=== PATIENT | female | born 1935 | race Two or more races ===

== ENCOUNTER 2021-04-05 20:32 | Inpatient (IN) | payer OTHER ==
[~2021-04-05] VITALS: Ht 170.2 cm; Wt 55.1 kg
[~2021-04-05 20:32] MED LIST: AML5T PO; ASPI325T4 PO; DOCU-94 PO; FERR45TA7 PO; HYDR25TA5 PO; LISI20TA28 PO; MET25T PO; SPIR25TA PO
[2021-04-05 22:03] LABS: Basophils # (auto) 0 10 ^3/uL (0-0.2); Basophils % (auto) 0.2 % (0.0-2.0); Eosinophils # (auto) 0 10 ^3/uL (0-0.8); Eosinophils % (auto) 0.1 % (0.0-7.0); Lymphocytes # (auto) 0.3 10 ^3/uL (0.4-5.4); Lymphocytes % (auto) 3.6 % (10.0-50.0); Mean Corpuscular Hemoglobin 32.9 pg (28.0-32.0); Mean Corpuscular Hgb Conc. 34.6 g/dL (32.0-36.0); Mean Corpuscular Volume 95.1 fL (80.0-100.0); Monocytes # (auto) 0.7 10 ^3/uL (0-1.3); Monocytes % (auto) 8.9 % (0.0-12.0); Neutrophils # (auto) 6.6 10 ^3/uL (1.6-8.6); Neutrophils % (auto) 87.2 % (37.0-80.0); Nucleated Red Blood Cells % 0.1 %; Red Blood Cells 2.74 10^6/uL (4.0-5.20); Red Cell Distribution Width 15.1 % (11.8-14.3); White Blood Cell 7.6 10^3/uL (4.4-10.8)
[2021-04-05 22:17] LABS: INR 1.03 (0.9-1.15); Partial Thromboplastin Time 28.8 sec (23.6-33.0)
[2021-04-05 22:21] LABS: Albumin 2.3 g/dL (3.4-5.0); Calcium 7.9 mg/dL (8.5-10.1); Magnesium 2.8 mg/dL (1.6-2.6); Potassium 4.8 mmol/L (3.5-5.1)
[2021-04-05 22:28] LABS: BUN/Creatinine Ratio 37.3; Bilirubin, Total 0.4 mg/dL (0.2-1.0); Total Protein 7.1 g/dL (6.4-8.2)
[2021-04-05] MEDS ORDERED: ENOXAPARIN SOD 100 MG/1 ML SYRINGE SC ONE (22:45)
[2021-04-05] MEDS ORDERED: ASPirin 325 MG TAB PO ONE (22:45)
[2021-04-05] MEDS ORDERED: ADENOSINE 6 MG/2 ML INJ IV ONE (22:59)
[2021-04-05] MEDS ORDERED: dilTIAZem 25 MG/5 ML VIAL IV ONE ×2 (23:00→23:01)
[2021-04-05] MEDS ORDERED: PROPYLTHIOURACIL 50 MG TAB PO ONE (23:15)
[2021-04-05] MEDS ORDERED: PROPRANOLOL HCL 20 MG TAB PO ONE (23:15)
[2021-04-05] MEDS ORDERED: MORPHINE SULFATE INJECTION 2 MG/ML SYRG IV PRN (23:30)
[2021-04-05] MEDS ORDERED: NITROGLYCERIN 0.4 MG SL TAB SL PRN (23:30)
[2021-04-05] MEDS ORDERED: methIMAzole 5 MG TAB PO ONE (23:30)
[2021-04-05] MEDS ORDERED: methIMAzole 5 MG TAB ONE (23:42)
[2021-04-05] MEDS ORDERED: ALBUMIN 5% 250 ML IV ONE (23:45)
[2021-04-06] MEDS ORDERED: TEMAZEPAM 15 MG CAP PO PRN
[2021-04-06] MEDS ORDERED: ATORVASTATIN 20 MG TAB PO ONE
[2021-04-06] MEDS ORDERED: ONDANSETRON HCL 4 MG/2 ML VIAL IV PRN
[2021-04-06] MEDS ORDERED: ACETAMINOPHEN 325 MG TAB PO PRN
[2021-04-06] MEDS ORDERED: DIGOXIN (250MCG/ML) 2 ML AMPULE IV ONE (00:15)
[2021-04-06] MEDS ORDERED: ENOXAPARIN SOD 40 MG/0.4 ML SYRINGE SC ONE (05:15)
[2021-04-06 06:44] LABS: Basophils # (auto) 0 10 ^3/uL (0-0.2); Basophils % (auto) 0.3 % (0.0-2.0); Eosinophils # (auto) 0 10 ^3/uL (0-0.8); Eosinophils % (auto) 0.2 % (0.0-7.0); Hematocrit 25.2 % (36.0-46.0); Hemoglobin 8.5 g/dL (12.2-16.2); Lymphocytes # (auto) 0.4 10 ^3/uL (0.4-5.4); Mean Corpuscular Hemoglobin 32.3 pg (28.0-32.0); Mean Corpuscular Hgb Conc. 33.8 g/dL (32.0-36.0); Mean Corpuscular Volume 95.8 fL (80.0-100.0); Monocytes # (auto) 0.9 10 ^3/uL (0-1.3); Neutrophils # (auto) 5.3 10 ^3/uL (1.6-8.6); Neutrophils % (auto) 80.5 % (37.0-80.0); Red Blood Cells 2.63 10^6/uL (4.0-5.20); Red Cell Distribution Width 15.2 % (11.8-14.3); White Blood Cell 6.6 10^3/uL (4.4-10.8)
[2021-04-06 07:32] LABS: Albumin 2.1 g/dL (3.4-5.0); BUN/Creatinine Ratio 36.4; Calcium 7.9 mg/dL (8.5-10.1)
[2021-04-06 07:34] LABS: Bilirubin, Total 0.4 mg/dL (0.2-1.0); Total Protein 6.2 g/dL (6.4-8.2)
[2021-04-06 09:00] VITALS: BP 120/66
[2021-04-06] MEDS: ASPirin 81 mg TAB PO SCH (09:49)
[2021-04-06] MEDS ORDERED: ENOXAPARIN SOD 30 MG/0.3 ML SYRINGE SC SCH (10:00)
[2021-04-06] MEDS ORDERED: PANTOPRAZOLE 40 MG TAB PO SCH (10:00)
[2021-04-06] MEDS ORDERED: SODIUM CHLORIDE 0.9% 500 ML IV ONE (11:15)
[2021-04-06 12:30] VITALS: BP 130/66
[2021-04-06] MEDS ORDERED: IOHEXOL 350 MG/ML 100ML IJ ONE ×2 (13:18→15:21)
[2021-04-06 16:30] VITALS: BP 126/64
[2021-04-06] MEDS ORDERED: ADENOSINE 6 MG/2 ML INJ IV ONE ×4 (18:14→20:00)
[2021-04-06] MEDS ORDERED: METOPROLOL TARTRATE 25 MG TAB PO ONE (18:15)
[2021-04-06] MEDS: AMIODARONE HCL 150 MG in D5W 5% 100 ML IV ONE (20:30)
[2021-04-06] MEDS: AMIODARONE 450mg/250ml AE 250 ML IV SCH (20:35)
[2021-04-06 22:00] VITALS: BP 82/55
[2021-04-06] MEDS ORDERED: ATORVASTATIN 20 MG TAB PO SCH (22:00)
[2021-04-07] VITALS (45 sets, daily range): BP systolic 85–130; BP diastolic 50–82
[2021-04-07] MEDS: AMIODARONE 450mg/250ml AE 250 ML IV SCH ×3 (02:19→18:03)
[2021-04-07] MEDS: AMIODARONE HCL 150 MG in D5W 5% 100 ML IV ONE (02:20)
[2021-04-07] MEDS: ATORVASTATIN 20 MG TAB PO SCH ×2 (02:21→21:20)
[2021-04-07] MEDS: METOPROLOL TARTRATE 25 MG TAB PO SCH ×3 (03:58→17:17)
[2021-04-07 08:39] LABS: Basophils # (auto) 0 10 ^3/uL (0-0.2); Basophils % (auto) 0.2 % (0.0-2.0); Eosinophils # (auto) 0 10 ^3/uL (0-0.8); Eosinophils % (auto) 0.1 % (0.0-7.0); Hematocrit 28.4 % (36.0-46.0); Hemoglobin 9.5 g/dL (12.2-16.2); Lymphocytes # (auto) 0.3 10 ^3/uL (0.4-5.4); Lymphocytes % (auto) 4.1 % (10.0-50.0); Mean Corpuscular Hemoglobin 32.2 pg (28.0-32.0); Mean Corpuscular Hgb Conc. 33.4 g/dL (32.0-36.0); Mean Corpuscular Volume 96.3 fL (80.0-100.0); Monocytes # (auto) 0.8 10 ^3/uL (0-1.3); Monocytes % (auto) 9.9 % (0.0-12.0); Neutrophils # (auto) 7.1 10 ^3/uL (1.6-8.6); Neutrophils % (auto) 85.7 % (37.0-80.0); Nucleated Red Blood Cells % 0.1 %; Red Blood Cells 2.95 10^6/uL (4.0-5.20); Red Cell Distribution Width 14.8 % (11.8-14.3); White Blood Cell 8.2 10^3/uL (4.4-10.8)
[2021-04-07 08:51] LABS: BUN/Creatinine Ratio 40.9; Calcium 7.8 mg/dL (8.5-10.1); Potassium 4.9 mmol/L (3.5-5.1)
[2021-04-07 09:14] LABS: INR 1.01 (0.9-1.15); Partial Thromboplastin Time 27.9 sec (23.6-33.0)
[2021-04-07] MEDS: ASPirin 81 mg TAB PO SCH (10:15)
[2021-04-07] MEDS ORDERED: ADENOSINE 6 MG/2 ML INJ IV PRN (13:30)
[2021-04-08 05:12] VITALS: BP 101/72
[2021-04-08] MEDS: METOPROLOL TARTRATE 25 MG TAB PO SCH (06:10)
[2021-04-08 08:30] VITALS: BP 102/52
[2021-04-08] MEDS: ASPirin 81 mg TAB PO SCH (10:00)
[2021-04-08] MEDS: ENOXAPARIN SOD 40 MG/0.4 ML SYRINGE SC SCH (10:00)
[2021-04-08] MEDS ORDERED: ERGOCALCIFEROL 50,000 UNIT(1.25MG) CAP PO SCH (11:45)
[2021-04-08 12:30] VITALS: BP 105/60
[2021-04-08 14:35] VITALS: BP 128/62
[2021-04-08] MEDS: AMIODARONE 450mg/250ml AE 250 ML IV SCH (15:45)
[2021-04-08 17:00] VITALS: BP 128/62
[2021-04-08 21:30] VITALS: BP 102/56
[2021-04-08] MEDS: AMIODARONE HCL 200 MG TAB PO SCH (22:15)
[2021-04-08] MEDS: ATORVASTATIN 20 MG TAB PO SCH (22:16)
[2021-04-09 05:01] VITALS: BP 101/59
[2021-04-09 05:48] LABS: Calcium 7.8 mg/dL (8.5-10.1); Potassium 5.2 mmol/L (3.5-5.1)
[2021-04-09 05:51] LABS: BUN/Creatinine Ratio 27.5
[2021-04-09 07:56] VITALS: BP 129/64
[2021-04-09] MEDS: ENOXAPARIN SOD 40 MG/0.4 ML SYRINGE SC SCH (10:00)
[2021-04-09] MEDS: AMIODARONE HCL 200 MG TAB PO SCH ×2 (10:29→21:44)
[2021-04-09] MEDS: ASPirin 81 mg TAB PO SCH (10:29)
[2021-04-09 12:00] VITALS: BP 125/67
[2021-04-09 14:35] VITALS: BP 123/68
[2021-04-09] MEDS ORDERED: SODIUM CHLORIDE 0.9% 1,000 ML IV ONE ×2 (16:00)
[2021-04-09 16:12] VITALS: BP 123/60
[2021-04-09] MEDS ORDERED: SODIUM CHLORIDE 0.9% 1,000 ML IV SCH (19:45)
[2021-04-09 20:30] LABS: BUN/Creatinine Ratio 26.3; Calcium 7.5 mg/dL (8.5-10.1); Potassium 5.2 mmol/L (3.5-5.1)
[2021-04-09 20:40] LABS: Urine Bacteria NONE SEEN /hpf (None Seen); Urine Blood 1+ /uL (Negative); Urine Mucus FEW (None Seen); Urine Specific Gravity 1.026 (1.001-1.035); Urine WBC 251 /hpf (0 - 5); Urine WBC Clumps PRESENT /hpf (None Seen)
[2021-04-09] MEDS: ATORVASTATIN 20 MG TAB PO SCH (21:44)
[2021-04-09 22:00] VITALS: BP 137/76
[2021-04-09] MEDS ORDERED: BISACODYL 10 MG RECT SUPP PR PRN (22:30)
[2021-04-10 05:00] VITALS: BP 118/62
[2021-04-10 07:20] LABS: BUN/Creatinine Ratio 27.1; Calcium 7.5 mg/dL (8.5-10.1); Potassium 5.4 mmol/L (3.5-5.1)
[2021-04-10 08:00] VITALS: BP 152/78
[2021-04-10] MEDS: ENOXAPARIN SOD 40 MG/0.4 ML SYRINGE SC SCH (08:28)
[2021-04-10 08:30] VITALS: BP 135/73
[2021-04-10] MEDS: POLYETHYLENE GLYCOL 17 GM PWDR PO SCH ×2 (10:00→21:03)
[2021-04-10] MEDS: AMIODARONE HCL 200 MG TAB PO SCH ×2 (10:00→21:01)
[2021-04-10] MEDS ORDERED: APIXABAN 2.5 MG TAB PO SCH (10:00)
[2021-04-10] MEDS: APIXABAN 2.5 MG TAB PO SCH ×2 (10:00→21:01)
[2021-04-10] MEDS: ASPirin 81 mg TAB PO SCH (10:00)
[2021-04-10] MEDS ORDERED: SODIUM CHLORIDE 0.9% 1,000 ML IV ONE (12:15)
[2021-04-10] MEDS: SODIUM CHLORIDE 0.9% 1,000 ML IV SCH (20:45)
[2021-04-10] MEDS: ATORVASTATIN 20 MG TAB PO SCH (21:02)
[2021-04-10 22:00] VITALS: BP 139/79
[2021-04-10 22:18] VITALS: BP 134/79
[2021-04-11 05:00] VITALS: BP 116/65
[2021-04-11 06:05] LABS: BUN/Creatinine Ratio 28.5; Calcium 7.5 mg/dL (8.5-10.1); Potassium 4.9 mmol/L (3.5-5.1)
[2021-04-11 09:00] VITALS: BP 134/73
[2021-04-11] MEDS: POLYETHYLENE GLYCOL 17 GM PWDR PO SCH ×2 (10:00→20:56)
[2021-04-11] MEDS: AMIODARONE HCL 200 MG TAB PO SCH ×2 (10:19→20:56)
[2021-04-11] MEDS: APIXABAN 2.5 MG TAB PO SCH ×2 (10:20→20:56)
[2021-04-11] MEDS: ASPirin 81 mg TAB PO SCH (10:20)
[2021-04-11 12:45] VITALS: BP 156/68
[2021-04-11] MEDS: SODIUM CHLORIDE 0.9% 1,000 ML IV SCH (13:25)
[2021-04-11 16:29] VITALS: BP 144/75
[2021-04-11] MEDS: ATORVASTATIN 20 MG TAB PO SCH (20:56)
[2021-04-11 21:45] VITALS: BP 127/67
[2021-04-11 22:18] VITALS: BP 127/67
[2021-04-12 05:25] VITALS: BP 128/87
[2021-04-12 05:36] LABS: BUN/Creatinine Ratio 30.8; Calcium 7.8 mg/dL (8.5-10.1); Potassium 5.2 mmol/L (3.5-5.1)
[2021-04-12] MEDS: SODIUM CHLORIDE 0.9% 1,000 ML IV SCH (06:05)
[2021-04-12 09:00] VITALS: BP 131/68
[2021-04-12] MEDS: AMIODARONE HCL 200 MG TAB PO SCH ×2 (09:01→23:21)
[2021-04-12] MEDS: ASPirin 81 mg TAB PO SCH (09:01)
[2021-04-12] MEDS: APIXABAN 2.5 MG TAB PO SCH ×2 (09:02→22:23)
[2021-04-12] MEDS: POLYETHYLENE GLYCOL 17 GM PWDR PO SCH ×2 (09:02→22:23)
[2021-04-12] MEDS ORDERED: InsuLIN REG 1unit/0.01ml Soln (100units/ml) IV ONE (09:15)
[2021-04-12] MEDS ORDERED: CALCIUM GLUC 1,000mg/50ml-NS 50 ML IV ONE (09:15)
[2021-04-12] MEDS ORDERED: DEXTROSE (50%) 50ML SYRG IV ONE (09:15)
[2021-04-12] MEDS ORDERED: SODIUM BICARBONATE 8.4 % INJ 50ML VIAL IV ONE (09:15)
[2021-04-12] MEDS: SODIUM ZIRCONIUM CYCL 10 GM PAK PO SCH ×2 (10:10→22:23)
[2021-04-12 13:00] VITALS: BP 127/71
[2021-04-12] MEDS ORDERED: SODIUM ZIRCONIUM CYCL 10 GM PAK PO ONE (14:00)
[2021-04-12 15:09] LABS: Anion Gap 6 (5-15); Carbon Dioxide 27 mmol/L (21-32); Chloride 105 mmol/L (98-107); Potassium 4.6 mmol/L (3.5-5.1); Sodium 138 mmol/L (136-145)
[2021-04-12 15:10] LABS: BUN/Creatinine Ratio 30.2; Blood Urea Nitrogen 62 mg/dL (7-18); Calcium 8.4 mg/dL (8.5-10.1); GFR African American 30 mL/min; GFR Non-African American 24 mL/min; Glucose 53 mg/dL (74-106)
[2021-04-12 17:00] VITALS: BP 148/66
[2021-04-12 21:43] VITALS: BP 146/65
[2021-04-12 22:00] VITALS: BP 146/65
[2021-04-12] MEDS: ATORVASTATIN 20 MG TAB PO SCH (22:23)
[2021-04-13 04:39] VITALS: BP 126/73
[2021-04-13 07:12] LABS: BUN/Creatinine Ratio 33.5; Calcium 8.2 mg/dL (8.5-10.1); Potassium 4.9 mmol/L (3.5-5.1)
[2021-04-13 08:51] VITALS: BP 136/73
[2021-04-13] MEDS: ASPirin 81 mg TAB PO SCH (09:05)
[2021-04-13] MEDS: APIXABAN 2.5 MG TAB PO SCH (09:06)
[2021-04-13] MEDS: AMIODARONE HCL 200 MG TAB PO SCH (09:06)
[2021-04-13] MEDS: POLYETHYLENE GLYCOL 17 GM PWDR PO SCH (09:06)
[2021-04-13 12:30] VITALS: BP 142/73
[2021-04-13 13:10] VITALS: BP 142/73
== END 2021-04-13 16:00 | DRG 280 ==
LOC: EDBD 20:32 → ER 20:32 → TELE 23:27 → TELE-WESTW 04-06 02:53 → ICU WEST 04-07 02:04 → TELE-CENTR 04-07 15:21
PROVIDERS: ADMIT Nurse Practitioner; ATTEND Internal Medicine
PROC: 05HD33Z Insertion of Infusion Device into Right Cephalic Vein, Percutaneous Approach (ICD-10-PCS; principal; 2021-04-12)
PROC: B54MZZA Ultrasonography of Right Upper Extremity Veins, Guidance (ICD-10-PCS; 2021-04-12)
DX: I21.4 Non-ST elevation (NSTEMI) myocardial infarction (principal); N17.0 Acute kidney failure with tubular necrosis; I47.1 Supraventricular tachycardia; I13.0 Hypertensive heart and chronic kidney disease with heart failure and stage 1 through stage 4 chronic kidney disease, or unspecified chronic kidney disease; E03.9 Hypothyroidism, unspecified; I27.20 Pulmonary hypertension, unspecified; I44.4 Left anterior fascicular block; I48.91 Unspecified atrial fibrillation; N18.31 Chronic kidney disease, stage 3a; T50.8X5A Adverse effect of diagnostic agents, initial encounter; D63.1 Anemia in chronic kidney disease; E55.9 Vitamin D deficiency, unspecified; E88.09 Other disorders of plasma-protein metabolism, not elsewhere classified; Z20.822 Contact with and (suspected) exposure to COVID-19; I73.9 Peripheral vascular disease, unspecified; I07.1 Rheumatic tricuspid insufficiency; I50.9 Heart failure, unspecified; I25.10 Atherosclerotic heart disease of native coronary artery without angina pectoris; J45.909 Unspecified asthma, uncomplicated; Z79.82 Long term (current) use of aspirin; Y92.89 Other specified places as the place of occurrence of the external cause; Z79.899 Other long term (current) drug therapy; Z82.49 Family history of ischemic heart disease and other diseases of the circulatory system; Z95.1 Presence of aortocoronary bypass graft
CPT/HCPCS: 36415; 71045; 71275; 76775; 80048; 80053; 81001; 82306; 82533; 82542; 82962; 83735; 83880; 84443; 84484; 85025; 85379; 85610; 85730; 87081; 87426; 93005; 93306; 93970; 96365; 96375; 97110; 97116; 97530; 99291; G0378; J0153; J1815; J7060

== ENCOUNTER 2021-04-19 19:15 | Emergency (ER) | payer OTHER ==
[~2021-04-19] VITALS: Ht 170.2 cm; Wt 45.4 kg
[2021-04-19 21:08] LABS: Basophils # (auto) 0 10 ^3/uL (0-0.2); Eosinophils # (auto) 0 10 ^3/uL (0-0.8); Hemoglobin 7.6 g/dL (12.2-16.2); Lymphocytes # (auto) 0.3 10 ^3/uL (0.4-5.4); Lymphocytes % (auto) 3.9 % (10.0-50.0); Monocytes # (auto) 0.5 10 ^3/uL (0-1.3)
[2021-04-19 21:10] LABS: Basophils % (auto) 0.3 % (0.0-2.0); Eosinophils % (auto) 0.1 % (0.0-7.0); Hematocrit 22.5 % (36.0-46.0); Mean Corpuscular Hemoglobin 31.9 pg (28.0-32.0); Mean Corpuscular Hgb Conc. 33.7 g/dL (32.0-36.0); Mean Corpuscular Volume 94.9 fL (80.0-100.0); Monocytes % (auto) 8.1 % (0.0-12.0); Neutrophils # (auto) 5.6 10 ^3/uL (1.6-8.6); Neutrophils % (auto) 87.6 % (37.0-80.0); Nucleated Red Blood Cells % 0.1 %; Red Blood Cells 2.38 10^6/uL (4.0-5.20); Red Cell Distribution Width 15.8 % (11.8-14.3); White Blood Cell 6.4 10^3/uL (4.4-10.8)
[2021-04-19 21:24] LABS: INR 1.16 (0.9-1.15); Partial Thromboplastin Time 29.9 sec (23.6-33.0)
[2021-04-19 21:30] LABS: Albumin 2.3 g/dL (3.4-5.0); Calcium 7.9 mg/dL (8.5-10.1); Potassium 3.4 mmol/L (3.5-5.1)
[2021-04-19 21:33] LABS: BUN/Creatinine Ratio 29.1; Bilirubin, Total 0.2 mg/dL (0.2-1.0); Total Protein 6.6 g/dL (6.4-8.2)
[2021-04-20 02:41] VITALS: BP 181/82
[2021-04-20 02:56] VITALS: BP 154/89
[2021-04-20 05:49] VITALS: BP 174/87
[2021-04-20] MEDS ORDERED: hydrALAZINE HCL 20 MG/ML VL IV ONE (11:15)
[2021-04-20] MEDS ORDERED: HCTZ 25 MG TAB PO SCH (11:33)
[2021-04-20] MEDS ORDERED: amLODIPine BESYLATE 5 MG TAB PO SCH (11:33)
[2021-04-20] MEDS ORDERED: LISINOPRIL 20 MG TAB PO SCH (11:34)
[2021-04-20] MEDS ORDERED: METOPROLOL TARTRATE 25 MG TAB PO SCH (11:34)
[2021-04-20 12:06] LABS: Urine Bacteria MANY /hpf (None Seen); Urine Blood 1+ /uL (Negative); Urine Mucus FEW (None Seen); Urine Specific Gravity 1.021 (1.001-1.035); Urine WBC 109 /hpf (0 - 5)
[2021-04-20] MEDS ORDERED: cefTRIAXone 1GM/50ML D5W 50 ML IV ONE (13:15)
[2021-04-20] MEDS ORDERED: POTASSIUM EFFERVESENT TAB 25 MEQ PO ONE (13:15)
[2021-04-20] MEDS ORDERED: CIPR-173 PO (14:58)
[2021-04-20 14:59] VITALS: BP 156/85
[2021-04-21] MEDS ORDERED: SPIRONOLACTONE 25 MG TAB PO SCH (10:00)
== END 2021-04-20 14:59 | disposition home or self-care (01) ==
LOC: EDBD 19:15 → ER 19:16
DX: D64.9 Anemia, unspecified (principal); R53.83 Other fatigue; J45.909 Unspecified asthma, uncomplicated; I10 Essential (primary) hypertension; Z20.822 Contact with and (suspected) exposure to COVID-19
CPT/HCPCS: 36415; 36430; 80053; 81001; 85025; 85610; 85730; 86850; 86900; 86901; 87426; 96365; 99285; J0696; P9016; 86922